=== PATIENT | female | born 1965 | race African-American/Black ===

== ENCOUNTER 2020-03-31 07:19 | Emergency (ER) | payer OTHER ==
[~2020-03-31] VITALS: Ht 147.3 cm; Wt 75.7 kg
[2020-03-31 07:47] VITALS: BP 133/80
--- NOTE | 2020-03-31 07:49 | NUR ---
ED Nurse Note: pt walked in to ER from home due to Rt upper toothache for 3 months. pt also c/o left foot pain since yesterday. per pt, a glass fell on to it at [facility]. no bleeding or swelling noted at this time and pt is ambulatory. calm and cooperative. no cardiac or pulmonary distress noted at this time.
--- NOTE | 2020-03-31 08:14 | NUR ---
ED Nurse Note: pt taken to CT in stable condition.
--- NOTE | 2020-03-31 08:14 | Emergency Room Report ---
History of Present Illness General Chief Complaint: Toothache Source: Patient Present Illness HPI Patient has 2 separate complaints. The first complaint: Patient states that yesterday when she was looking at she is at [employer] a glass object fell and hit her on the back of her left foot and ankle. She states she also slipped and fell and hit the back of her head at that time. She states she has a headache and pain in the back of her head. She denies neck pain, tingling/numbness, weakness, nausea or vomiting, blurry vision or double vision, chest pain or shortness of breath, other musculoskeletal injury. She did not lose consciousness when she fell. She states she also has a tooth that has a cavity and the dentist states that the "infection" needs to be gone before he can do any further work on her tooth. She is requesting antibiotics. She states she has had this tooth this way for a long time. She denies fever or chills. She denies change in her gums or any new development in this chronic cavity. She has no other complaints. Allergies: Coded Allergies: No Known Allergies (Unverified , 03/31/20) COVID-19 Screening Contact w/high risk pt: No Experienced COVID-19 symptoms?: No COVID-19 Testing performed BUSINESS TRANSFORMATION CONSULTANT: No COVID-19 Screening: Negative COVID-19 COVID-19 Testing Source: Nasal Patient History Past Medical History: none Social History: Denies: smoking, alcohol use, drug use Reviewed Nursing Documentation: PMH: Agreed; PSxH: Agreed Nursing Documentation-PMH Past Medical History: No Stated History Review of Systems All Other Systems: negative except mentioned in HPI Physical Exam Vital Signs Date Time Temp Pulse Resp B/P (MAP) Pulse Ox O2 Delivery O2 Flow Rate FiO2 03/31/20 07:26 98.2 85 19 133/80 (97) 96 Room Air Sp02 EP Interpretation: reviewed, normal General Appearance: no apparent distress, alert, GCS 15, non-toxic Head: normocephalic, other - TTP over the L. Parieto-occipital scalp. Localized region c/w cephalohematoma, although limited by overlying hair/hairspray that limits visualization and palpation of the scalp. No blood/bleeding. Eyes: bilateral eye normal inspection, bilateral eye PERRL ENT: hearing grossly normal, normal pharynx, no angioedema, normal voice Neck: normal inspection, full range of motion, supple, supple/symm/no masses Respiratory: no respiratory distress, no retraction, no accessory muscle use, speaking full sentences Rectal: deferred Musculoskeletal: back normal, normal range of motion, gait/station normal, non- tender Neurologic: alert, motor strength/tone normal, oriented x3, sensory intact, responsive, speech normal Psychiatric: judgement/insight normal, memory normal, mood/affect normal, no suicidal/homicidal ideation Reflexes: 3+ bicep (R), 3+ bicep (L), 3+ tricep (R), 3+ tricep (L), 3+ knee (R), 3+ knee (L) Lymphatic: no adenopathy Medical Decision Making Diagnostic Impression: Primary Impression: Dental caries Additional Impressions: Contusion of foot, left Ankle sprain Closed head injury ER Course This patient has 2 separate complaints. The patient had a mechanical fall in [place] yesterday and was evaluated with a CT of her head given her head trauma and headache. CT of the head was unremarkable. Patient also has a contusion of her left foot and left ankle sprain. The x-ray of the left foot is negative for any acute fracture. Examination is reassuring without evidence of compartment syndrome or occult fracture. The patient was placed in an John wrap and given crutches for comfort. Overall, the patient's evaluation is benign and I did not feel that any further imaging was indicated at this time. This is based on history and physical exam. Of note, the patient also has dental caries and is requesting antibiotics for a dental procedure. Given the condition of the overall dentition of the patient's teeth, I felt that this was appropriate and patient will be given a course of antibiotics. She is also instructed to follow-up closely with a dentist for definitive treatment of her extensive dental caries. There is no evidence of systemic infection at this time. Patient is given close return precautions and follow-up instructions. This patient was evaluated in the context of the global COVID-19 pandemic, which necessitated consideration that the patient might be at risk for infection with the [id number] virus that causes COVID-19. Institutional protocols and algorithms that pertain to the evaluation of patients at risk for COVID-19 and the state of rapid change based on information released by multiple regulatory bodies including the CDC and federal and state organizations. These policies and algorithms were followed during the patient's care in the ED. Other X-Ray Diagnostic Results Other X-Ray Diagnostic Results : X-Ray ordered: L. Foot # of Views/Limited Vs Complete: Complete Indication: Pain EP Interpretation: Yes Interpretation: no dislocation, no fractures Impression: No acute disease Electronically Signed by: Ramandeep Méndez DO CT/MRI/US Diagnostic Results CT/MRI/US Diagnostic Results : Imaging Test Ordered: CT head Impression No acute findings. Specifically no intracranial bleed, mass effect or edema. See official report. Last Vital Signs Date Time Temp Pulse Resp B/P (MAP) Pulse Ox O2 Delivery O2 Flow Rate FiO2 03/31/20 07:47 98.2 85 19 133/80 98 Room Air Status: improved Disposition: HOME, SELF-CARE Condition: Improved Patient Instructions: Dental Pain Ramandeep Méndez DO Mar 31, 2020 08:14
--- NOTE | 2020-03-31 09:01 | NUR ---
ED Nurse Note: Dr Méndez was notified of patient asking for pain medication.
--- NOTE | 2020-03-31 09:12 | Diagnostic Imaging Report ---
Indication: Headache after injury Technique: Continuous helical CT scanning of the head was performed utilizing automated exposure control without intravenous contrast material. Axial and coronal reconstructions were obtained. Comparison: None CT dose: Total DLP 992.1 mGycm; CTDI vol 53.4 mGy Findings: There is no acute intracranial hemorrhage, mass effect or cortical edema. There is no shift of midline structures. The ventricles, cisterns and sulci are within normal limits for age. Visualized mastoid air cells and paranasal sinuses are unremarkable. No focal lesions of the bony calvarium or soft tissues of the scalp are seen. IMPRESSION: No evidence of acute intracranial hemorrhage, mass effect or cortical edema. No acute skull fracture. The CT scanner at [facility] is accredited by the [employer] and the scans are performed using protocols designed to limit radiation exposure to as low as reasonably achievable to attain images of sufficient resolution adequate for diagnostic evaluation. Normal
--- NOTE | 2020-03-31 09:13 | Diagnostic Imaging Report ---
Indication: Foot pain status post injury Technique: Views of the left foot Comparison: None Findings: Bony mineralization within normal limits. No acute fracture is identified. Lisfranc alignment is maintained. No ankle effusion. No radiographic foreign body. Impression: No acute fracture or dislocation.
[2020-03-31] MEDS ORDERED: CLINDAMYCIN HC300 MG ORAL (09:42)
[2020-03-31] MEDS ORDERED: IBUPROFEN600 M1 ORAL (09:42)
--- NOTE | 2020-03-31 09:44 | Consultation ---
History of Present Illness General Date patient seen: Mar 31, 2020 Time patient seen: 09:30 Chief Complaint: Toothache and scalp pain Referring physician: Dr. Méndez Reason for Consultation: Toothache Present Illness HPI Alivia Scott is a 54 year-old woman who came to the ER today after sustaining a mechanical fall leading to a left ankle injury yesterday. She also reports a glass falling on her head at the time and reports an area of tenderness over the right occipital head. Denies LOC. No changes in vision. She also reports toothache. Of note, she has a known tooth infection in the right upper molars which her prior dentist has evaluated and recommended an antibiotic treatment prior to any dental procedures. She reports the pain is about the same as it has been in the past month. As for the scalp, she complains of a tender point of tenderness in the right occipital region. No bleeding. Allergies: Coded Allergies: No Known Allergies (Unverified , 03/31/20) Medication History Scheduled Clindamycin Hcl (Clindamycin Hcl), 300 MG ORAL THREE TIMES A DAY Ibuprofen* (Motrin*), 600 MG ORAL THREE TIMES A DAY Patient History History Provided By: Patient Healthcare decision maker Resuscitation status Advanced Directive on File Past Medical/Surgical History Past Medical/Surgical History: (1) Ankle sprain (2) Dental caries (3) Closed head injury (4) Contusion of foot, left Review of Systems Musculoskeletal: Reports: no symptoms, see HPI, back pain, gout, joint pain, joint swelling, muscle pain, muscle stiffness, other - pain in left ankle Physical Exam General Appearance: WD/WN, no apparent distress HEENT: anicteric, mucous membranes moist, PERRL, EOMI, other - tender to palpation over the right occipital region; no palpable fluctuance; right upper premolar tooth missing chronically. Right upper first molar tooth with dental filling that is brown and appears infected. Overall dentition is poor with prior fillings and brown changes of the teeth. No active gum swelling or purulence. Moderate tenderness on palpation over the right first molar tooth. Neck: non-tender Respiratory/Chest: chest wall non-tender Last 24 Hour Vital Signs Date Time Temp Pulse Resp B/P (MAP) Pulse Ox O2 Delivery O2 Flow Rate FiO2 03/31/20 07:47 98.2 85 19 133/80 98 Room Air 03/31/20 07:26 98.2 85 19 133/80 (97) 96 Room Air Height (Feet): 4 Height (Inches): 10.00 Weight (Pounds): 167 Assessment/Plan Problem List: (1) Dental caries Assessment & Plan: Likely subacute tooth infection in the right upper molars leading to pain. Would recommend antibiotic (drug of choice and duration by ER MD) treatment and follow up with her dentist. Patient full encounter observed by Dr. Spencer Koo, plastic surgeon. ICD Codes: K02.9 - Dental caries, unspecified SNOMED: [id number] Status: doing well To Raymundo M.D. Mar 31, 2020 09:44
[2020-03-31 09:46] VITALS: BP 128/87
--- NOTE | 2020-03-31 09:46 | NUR ---
ER DISCHARGE NOTE: Patient is cleared to be discharged per ERMD, pt is aox4, on room air, with stable vital signs. pt was given dc and prescription instructions, pt was able to verbalize understanding, pt id band removed. pt is able to ambulate with steady gait. pt took all belongings.
== END 2020-03-31 09:46 | disposition home or self-care (01) ==
LOC: EMR 07:57
DX: K02.9 Dental caries, unspecified (principal); S90.32XA Contusion of left foot, initial encounter; S93.402A Sprain of unspecified ligament of left ankle, initial encounter; S09.90XA Unspecified injury of head, initial encounter; W25.XXXA Contact with sharp glass, initial encounter; Y92.9 Unspecified place or not applicable; W01.10XA Fall on same level from slipping, tripping and stumbling with subsequent striking against unspecified object, initial encounter
CPT/HCPCS: 70450; 73630; Z7502; 99284